=== PATIENT | male | born 2000 | race African-American/Black ===

== ENCOUNTER 2021-11-24 00:18 | Emergency (ER) | payer OTHER ==
[~2021-11-24] VITALS: Ht 177.8 cm; Wt 63.6 kg
[2021-11-24 00:45] LABS: BASO # 0.1 x10^3/uL (0.0-0.2); BASO % 1 % (0-3); EOS % 1 % (0-3); HEMATOCRIT 42.3 % (39.0-53.0); LYMPH # 2.6 x10^3/uL (1.0-4.8); LYMPH % 43 % (24-48); MEAN CORPUSCULAR HEMOGLOBIN 30 pg (25-35); MEAN CORPUSCULAR HGB CONC 33 g/dL (31-37); MEAN CORPUSCULAR VOLUME 89 fL (79-100); MONO # 0.6 x10^3/uL (0.0-1.1); MONO % 9 % (0-9); NEUT # 2.8 x10^3/uL (1.8-7.7); NEUT % 46 % (31-73); PLATELET COUNT 300 x10^3/uL (140-400); RED BLOOD COUNT 4.77 x10^6/uL (4.30-5.70); RED CELL DISTRIBUTION WIDTH 13.4 % (11.5-14.5); WHITE BLOOD COUNT 6.1 x10^3/uL (4.0-11.0)
[2021-11-24 00:55] LABS: CALCIUM 8.6 mg/dL (8.5-10.1); CREATININE 1.1 mg/dL (0.7-1.3); GFR 84.5; POTASSIUM 3.4 mmol/L (3.5-5.1)
[2021-11-24 01:01] LABS: ALBUMIN 4.1 g/dL (3.4-5.0); ALBUMIN/GLOBULIN RATIO 0.9 (1.0-1.7); TOTAL BILIRUBIN 0.7 mg/dL (0.2-1.0); TOTAL PROTEIN 8.5 g/dL (6.4-8.2)
[2021-11-24 01:08] LABS: FREE T4 0.89 ng/dL (0.76-1.46); THYROID STIM HORMONE (TSH) 1.656 uIU/mL (0.358-3.74)
[2021-11-24 01:08] LABS: INFLUENZA A PATIENT NEGATIVE (NEGATIVE); INFLUENZA B PATIENT NEGATIVE (NEGATIVE)
[2021-11-24 01:23] VITALS: BP 126/67
--- NOTE | 2021-11-24 01:27 | PHYS DOC ---
Past Medical History Past Surgical History: No Surgical History Smoking Status: Never Smoker Alcohol Use: None Adult General Chief Complaint Chief Complaint: SHORTNESS OF BREATH HPI HPI The patient is a 21-year-old male who is otherwise healthy. He presents for evaluation of intermittent palpitations over the last 3 days. Palpitations ronnie me more frequent this evening, causing what sounds to have been some acute anxiety/panic with hyperventilation and bilateral hand tingling occurring prior to arrival. Those symptoms are resolved now, but palpitations continue. When patient has a palpitation, a premature ventricular contraction is noted on the cardiac exercise physiologist during initial evaluation. Aside from palpitations, patient denies any other focal or specific symptoms over the past few days and specifically denies fevers, nausea or vomiting, upper respiratory congestion/rhinorrhea, cough, sore throat, shortness of breath or chest pain of any kind, abdominal pain of any kind, flank pain, midline back pain, dysuria, hematuria, polyuria or oliguria, changes in bowel habits, pain or swelling to arms or legs. Patient is alert and pleasantly and appropriately interactive and in no acute distress with appropriate vital signs aside from mildly elevated blood pressure upon initial evaluation here in the emergency department. Review of Systems Review of Systems A 12 point review of systems was completed and was negative except where noted in HPI above. Allergies Allergies Allergies Coded Allergies Type Severity Reaction Last Updated Verified No Known Drug Allergies 11/24/21 No Physical Exam Physical Exam Younger male appearing nontoxic and in no acute distress. Head is normocephalic and atraumatic. Neck is supple and nontender. Oropharynx is moist. Lungs are clear to auscultation at all stations. There is a normal S1 and S2 without rubs or gallops and capillary refill is appropriate, less than 2 seconds globally. Abdomen is soft, nontender and nondistended. Skin is warm and dry without cyanosis, clubbing or edema. Psychiatrically, the patient demonstrates appropriate mood and affect and is alert. Evaluation of the extremities reveals BUEs and BLEs neurovascularly intact distally with strength 5 out of 5, sensation intact light touch in all nerve distributions, radial, DP and PT pulses 2+ equal bilaterally, capillary refill less than 2 seconds, hands and feet warm and well-perfused. No dependent peripheral edema distally. No calf tenderness or swelling bilaterally. Homans test is negative bilaterally. Current Patient Data Vital Signs Vital Signs Date Time Temp Pulse Resp B/P (MAP) Pulse Ox O2 Delivery O2 Flow Rate FiO2 11/24/21 00:20 97 25 151/98 (115) 100 Room Air Lab Values Laboratory Tests Test 11/24/21 00:35 11/24/21 00:43 White Blood Count 6.1 x10^3/uL (4.0-11.0) Red Blood Count 4.77 x10^6/uL (4.30-5.70) Hemoglobin 14.0 g/dL (13.0-17.5) Hematocrit 42.3 % (39.0-53.0) Mean Corpuscular Volume 89 fL (79-100) Mean Corpuscular Hemoglobin 30 pg (25-35) Mean Corpuscular Hemoglobin Concent 33 g/dL (31-37) Red Cell Distribution Width 13.4 % (11.5-14.5) Platelet Count 300 x10^3/uL (140-400) Neutrophils (%) (Auto) 46 % (31-73) Lymphocytes (%) (Auto) 43 % (24-48) Monocytes (%) (Auto) 9 % (0-9) Eosinophils (%) (Auto) 1 % (0-3) Basophils (%) (Auto) 1 % (0-3) Neutrophils # (Auto) 2.8 x10^3/uL (1.8-7.7) Lymphocytes # (Auto) 2.6 x10^3/uL (1.0-4.8) Monocytes # (Auto) 0.6 x10^3/uL (0.0-1.1) Eosinophils # (Auto) 0.0 x10^3/uL (0.0-0.7) Basophils # (Auto) 0.1 x10^3/uL (0.0-0.2) Sodium Level 138 mmol/L (136-145) Potassium Level 3.4 mmol/L (3.5-5.1) L Chloride Level 102 mmol/L (98-107) Carbon Dioxide Level 28 mmol/L (21-32) Anion Gap 8 (6-14) Blood Urea Nitrogen 14 mg/dL (8-26) Creatinine 1.1 mg/dL (0.7-1.3) Estimated GFR (Cockcroft-Gault) 84.5 BUN/Creatinine Ratio 13 (6-20) Glucose Level 125 mg/dL (70-99) H Calcium Level 8.6 mg/dL (8.5-10.1) Magnesium Level 2.0 mg/dL (1.8-2.4) Total Bilirubin 0.7 mg/dL (0.2-1.0) Aspartate Amino Transferase (AST) 20 U/L (15-37) Alanine Aminotransferase (ALT) 27 U/L (16-63) Alkaline Phosphatase 66 U/L (46-116) Troponin I High Sensitivity 4 ng/L (4-75) Total Protein 8.5 g/dL (6.4-8.2) H Albumin 4.1 g/dL (3.4-5.0) Albumin/Globulin Ratio 0.9 (1.0-1.7) L Thyroid Stimulating Hormone (TSH) 1.656 uIU/mL (0.358-3.74) Free Thyroxine 0.89 ng/dL (0.76-1.46) Influenza Type A Antigen Negative (NEGATIVE) Influenza Type B Antigen Negative (NEGATIVE) SARS-CoV-2 Antigen (Rapid) Negative (NEGATIVE) Laboratory Tests 11/24/21 00:35 Laboratory Tests 11/24/21 00:35 EKG EKG Sinus rhythm, right ventricular conduction delay, no acute ST elevation or depression, MO 134, QRS 98, QTc 384, EP interpretation. Nonischemic tracing, intervals appropriate. Radiology/Procedures Radiology/Procedures No acute cardiopulmonary process per EP preliminary interpretation. Formal radiology interpretation is to follow. Course & Med Decision Making Course & Med Decision Making Labs and imaging nonacute. Patient is resting comfortably in no acute distress on serial reassessments. On review of cardiac telemetry, occasional PVCs are noted, which patient states correspond perfectly to the palpitations that he f eels. Plan for discharge home to follow-up closely with primary care and will provide a referral to the cardiology clinic for follow-up of symptomatic PVCs. Patient understands that if he feels worse instead of better or develops other new symptoms of concern that he should return to the emergency department immediately for reevaluation. All questions are answered. Dragon Disclaimer Dragon Disclaimer This electronic medical record was generated, in whole or in part, using a voice recognition dictation system. Departure Departure Impression: Primary Impression: Premature ventricular contractions Disposition: HOME / SELF CARE / HOMELESS Condition: STABLE Referrals: ALLEY REDMOND MD Patient Instructions: Premature Ventricular Contraction Additional Instructions: Follow-up very closely with your primary care doctor in the office in the next 2 to 4 days for a reevaluation of your symptoms and to discussion of next best steps in care. We are providing a referral to Dr. Redmond's cardiology clinic as well; I would like you to be seen in the cardiology clinic in follow-up in the next 1 week. Please call to make an appointment. Drink plenty of fluids and get plenty of rest. Return to the emergency department right away for worsening symptoms of any kind or with any other new symptoms of concern. CAESAR TORRES MD Nov 24, 2021 01:27
--- NOTE | 2021-11-24 01:40 | RAD ---
XR CHEST 1V Clinical History: Reason: palpitations / Spl. Instructions: / History: Technique: AP view of the chest was obtained at 11/24/2021 12:55 AM. Comparison: None. Findings: The cardiomediastinal silhouette is normal. The pulmonary vasculature is normal. The lungs and pleura l margins are clear. Impression: No evidence of an acute cardiopulmonary process. Electronically signed by: Zana Gomes III, MD (11/24/2021 1:38 AM) [facility]
--- NOTE | 2021-11-24 05:21 | EKG ---
[facility] [address] [place] [address] Test Date: 2021-11-24 Test Time: 00:24:56 Pat Name: AURA MCDERMOTT Department: Room: Gender: M [employer]: : [id number] Requested By: CAESAR TORRES Order Number: [id number] Reading MD: Measurements Intervals [place] Rate: 82 P: 67 DC: 134 QRS: 66 QRSD: 98 T: 62 QT: 326 QTc: 384 Interpretive Statements SINUS RHYTHM INCOMPLETE RIGHT BUNDLE BRANCH BLOCK OTHERWISE NORMAL ECG RI6.02 No previous ECG available for comparison
--- NOTE | 2021-11-25 09:22 | NUR ---
IP: Attempted to contact pt concerning covid results. No answer, left a voicemail to return the call.
== END 2021-11-24 01:39 | disposition home or self-care (01) ==
LOC: ER 00:18
DX: I49.3 Ventricular premature depolarization (principal); Z20.822 Contact with and (suspected) exposure to COVID-19
CPT/HCPCS: 71045; 80053; 83735; 84439; 84443; 84484; 85025; 87428; 93005; 99285; C9803; U0003